=== PATIENT | male | born 1995 | race Caucasian/White ===

== ENCOUNTER 2020-10-29 19:34 | Emergency (ER) | payer OTHER, SELFPAY ==
--- NOTE | ~2020-10-29 | XR_ITS ---
EXAMINATION: LEFT HAND AND WRIST X-RAY CLINICAL INFORMATION: Trauma COMPARISON: None TECHNIQUE: 4 views of the left hand and wrist FINDINGS: Bone alignment is normal. No fracture or dislocation is seen. Joint spaces are normal. Soft tissues are normal. XR/XR hand wrist LT IMPRESSION: Unremarkable exam.
[2020-10-29 19:45] VITALS: BP 136/71; PULSE 57; RESP 18; TEMP 36.8; O2SAT 97; BMI 25.8
[2020-10-29 21:30] VITALS: BP 128/73; PULSE 61; RESP 18; O2SAT 98
--- NOTE | 2020-10-29 22:00 | ED_ITS ---
HPI - Extremity Problem General Chief complaint: Extremity Injury, Upper Stated complaint: wrist pain Time Seen by Provider: 10/29/20 22:00 Source: patient Mode of arrival: ambulatory History of Present Illness HPI Narrative: This is a 25-year-old male without significant past medical history who presents with a swollen left hand after stating he was cutting a tree down in his yd and it fell on him without him hitting his head or loss of consciousness. Patient has no other complaints other than stating that his left hand and wrist hurt and he noted that it was swelling. He denies any loss of motion or sensation. Related Data Allergies Allergy/AdvReac Type Severity Reaction Status Date / Time No Known Allergies Allergy Verified 10/29/20 19:45 Review of Systems Review of Systems: Pertinent positives and negatives as stated in HPI 10 point review of systems is otherwise negative. PMFSH Past Medical History Source: nursing notes reviewed Social History Social History Advance Directives: No Advance Directives Information Provided: Yes Physical Exam Vital Signs: Vital Signs: Last Vital Signs Temp 98.3 F 10/29/20 19:45 Pulse 61 10/29/20 21:30 Resp 18 10/29/20 21:30 BP 128/73 10/29/20 21:30 Pulse Ox 98 10/29/20 21:30 Body Mass Index 25.8 VITAL SIGNS: Reviewed. GENERAL: Well developed, well nourished, in no acute distress. HEAD: Normocephalic/atraumatic EYES: PERRLA, EOMI OROPHARYNX: no oral lesions noted, posterior pharynx clear, moist mucosa NECK: Supple, no adenopathy LUNGS: Normal breath sounds. No adventitious sounds or accessory muscle use. SpO2<98> CARDIOVASCULAR: Regular rate and rhythm without noted murmurs LEFT HAND/WRIST: Full range of motion (flexion, extension, supination, pronation), palpable radial/ulnar pulses, capillary refill less than 3 seconds, sensation intact, snuffbox is nontender. SKIN: Inspection of the skin reveals no rashes, abrasions noted to the bridge of the nose, right forearm, left wrist NEUROLOGIC: Alert and oriented x 4. Strength and sensation to light touch were grossly intact x 4. Course Course Course Narrative: This is a 25-year-old male with history and clinical presentation consistent with contusion versus fracture of the left hand dorsum. On review of imaging negative for any acute fractures or dislocations. All results were discussed with the patient at bedside and since his tetanus shot is unknown patient will receive Tdap here in the emergency room and then be di scharged home in stable condition. Discharge Plan Discharge Clinical Impression: Contusion of left hand Patient Disposition: Home, Self-Care Instructions: Contusion in Adults (ED) Additional Instructions: 1. Tylenol 1000 mg, orally, every 6 hours as needed for pain control. Do not exceed 4000 mg within 24 hours. 2. Ibuprofen 400 mg, orally with milk or food, every 6 hours as needed for pain control. 3. Apply ice to unexposed skin for 5-10 minutes, 3 to 4 times a day. Continue to move wrist and hand. 4. Please follow-up with your primary care provider in 2-3 days for re- evaluation. Return to the ER for any acute worsening of your symptoms. Referrals: Physician,Unknown [Primary Care Provider] - 2 days
[2020-10-29] MEDS: Diphth,Pertus(ACell),Tet Adult 0.5 ML SYRINGE IM (22:13)
== END 2020-10-29 22:22 | disposition home or self-care (01) ==
PROVIDERS: Emergency Provider Student in an Organized Health Care Education/Training Program
DX: S60.222A Contusion of left hand, initial encounter (principal); S00.31XA Abrasion of nose, initial encounter; S50.811A Abrasion of right forearm, initial encounter; S60.812A Abrasion of left wrist, initial encounter; W20.8XXA Other cause of strike by thrown, projected or falling object, initial encounter; Y93.H2 Activity, gardening and landscaping; Y92.007 Garden or yard of unspecified non-institutional (private) residence as the place of occurrence of the external cause; Y99.9 Unspecified external cause status
CPT/HCPCS: 73110; 73130; 90471; 90715; 99284